=== PATIENT | male | born 1990 | race Two or more races ===

== ENCOUNTER 2023-02-03 07:45 | Outpatient (CLI) | payer OTHER, SELFPAY | END 2023-02-03 07:46 | disposition home or self-care (01) | PROVIDERS: Visit Provider Family Medicine | DX: Z00.00 Encounter for general adult medical examination without abnormal findings (principal); E78.5 Hyperlipidemia, unspecified; R73.03 Prediabetes | CPT/HCPCS: 80061; 82947 ==

== ENCOUNTER 2024-02-09 08:25 | Outpatient (CLI) | payer OTHER, SELFPAY | END 2024-02-09 08:26 | disposition home or self-care (01) | LOC: NFLDREF 02-13 09:30 | PROVIDERS: PCP Family Medicine; Referring Provider Family Medicine; Visit Provider Family Medicine | DX: E78.5 Hyperlipidemia, unspecified (principal); R73.03 Prediabetes | CPT/HCPCS: 80053; 80061 ==

== ENCOUNTER 2025-05-02 07:59 | Outpatient (CLI) | payer BC, SELFPAY | END 2025-05-02 08:00 | disposition home or self-care (01) | LOC: NFLDREF 05-04 16:11 | PROVIDERS: PCP Family Medicine; Referring Provider Family Medicine; Visit Provider Family Medicine | DX: E78.5 Hyperlipidemia, unspecified (principal); Z13.1 Encounter for screening for diabetes mellitus | CPT/HCPCS: 80061; 82947 ==